=== PATIENT | female | born 1945 | race Hispanic/Latino ===

== ENCOUNTER → 2019-06-09 | Outpatient (CLI) | payer OTHER ==
[~2019-06-09] MED LIST: AEC81 PO; AMLO5TAB4 PO; CALC-1009 PO; CARV6.2579 PO; CLOP75TA14 PO; EZET10TA13 PO; FURO40TA7 PO; GLIM2TAB3 PO; INSU100V12 SQ; IRON1CAP PO; ISOS60TA4 PO; LISI-613 PO; MULT-1192 PO; Nitroglycerin SL; ROSU10TA22 PO; TRAM50TA4 PO; UBID200C18 PO
== END | disposition home or self-care (01) ==
LOC: RAH 10:04
PROVIDERS: ATTEND Internal Medicine
DX: Z12.31 Encounter for screening mammogram for malignant neoplasm of breast (principal)
CPT/HCPCS: 77067

== ENCOUNTER 2020-12-26 22:27 | Emergency (ER) | payer MEDICARE ==
[~2020-12-26 22:27] MED LIST changes: -GLIM2TAB3 PO; +GLIM2TAB30 PO; -ISOS60TA4 PO; +ISOS60TA77 PO; -LISI-613 PO; +LISI20TA24 PO
[2020-12-26] MEDS ORDERED: ASPIRIN 325 MG TABLET ONE (22:46)
[2020-12-26 22:57] LABS: APPEARANCE,URINE Cloudy (CLEAR); BILIRUBIN,URINE Negative (NEGATIVE); COLOR,URINE Yellow (YELLOW); GLUCOSE, URINE (UA) TRACE mg/dL (NEGATIVE); KETONES,URINE Negative (NEGATIVE); LEUKOCYTE ESTERASE ,URINE Trace (NEGATIVE); NITRATE,URINE Negative (NEGATIVE); OCCULT BLOOD,URINE Trace (NEGATIVE); PH,URINE 5.5 (5.0-8.0); PROTEIN,URINE 300 mg/dL (NEGATIVE); UROBILINOGEN,URINE 0.2 mg/dL (0.2-1.0)
[2020-12-26 23:03] LABS: BASOPHILS % (AUTO) 0.5 % (0.0-5.0); EOSINOPHILS % (AUTO) 4.2 % (0.0-8.0); MEAN CORPUSCULAR HEMOGLOBIN 30.3 pg (27.0-33.0); MEAN CORPUSCULAR HGB CONC 33.5 g/dL (32.0-36.0); MEAN CORPUSCULAR VOLUME 90.5 fL (79-99); MONOCYTES % (AUTO) 9.1 % (3.0-13.0); NEUTROPHILS % (AUTO) 52.9 % (40.0-77.0); PLATELET COUNT (AUTO) 289 K/uL (130-400); RED BLOOD CELL COUNT(AUTO) 4.42 MIL/uL (4.00-5.50); WHITE BLOOD COUNT (AUTO) 12.7 K/uL (4.8-10.8)
[2020-12-26 23:05] LABS: BACTERIA,URINE Rare /HPF (None Seen); SQUAMOUS EPITHELIAL CELL,UR Few /HPF (0-2)
[2020-12-26 23:12] LABS: INR 0.98 (0.85-1.15); PROTHROMBIN TIME 10.7 SEC (9.6-11.6)
[2020-12-26 23:13] LABS: CREATININE 1.9 mg/dL (0.5-1.5); PARTIAL THROMBOPLASTIN TIME 32.2 SEC (26.3-35.5)
[2020-12-26 23:18] LABS: ALBUMIN 3.1 g/dL (3.5-5.0); BILIRUBIN,TOTAL 0.3 mg/dL (0.2-1.0)
[2020-12-26] MEDS ORDERED: ONDANSETRON HCL 4 MG/2 ML VIAL ONE (23:31)
[2020-12-26 23:55] LABS: B-TYPE NATRIURETIC PEPTIDE 435 pg/mL (0-100)
[2020-12-27] MEDS ORDERED: ACETAMINOPHEN 325 MG TAB ONE (00:07)
[2020-12-27] MEDS ORDERED: NITROGLYCERIN 1GM/1 INCH PACKET TD ONE (00:07)
[2020-12-27] MEDS ORDERED: CLONIDINE HCL 0.1 MG TABLET ONE (02:38)
[2021-02-01] MEDS ORDERED: LISI2.5T2 PO (08:33)
== END 2020-12-27 05:07 | disposition home or self-care (01) ==
LOC: EDH 22:27
DX: I12.9 Hypertensive chronic kidney disease with stage 1 through stage 4 chronic kidney disease, or unspecified chronic kidney disease (principal); Z20.822 Contact with and (suspected) exposure to COVID-19; N18.4 Chronic kidney disease, stage 4 (severe)
CPT/HCPCS: 36415; 70450; 71045; 80053; 81001; 82550; 83690; 83880; 84145; 84484 ×2; 85025; 85610; 85730; 87426; 93005 ×2; 96374; 99285; J2405; U0003

== ENCOUNTER → 2020-12-27 | Outpatient (CLI) | payer MEDICARE | END | disposition home or self-care (01) | LOC: RAH 09:57 | PROVIDERS: ATTEND Internal Medicine | DX: I70.1 Atherosclerosis of renal artery (principal); N18.4 Chronic kidney disease, stage 4 (severe); R80.9 Proteinuria, unspecified | CPT/HCPCS: 76770; 93975 ==

== ENCOUNTER 2021-02-01 01:22 | Inpatient (IN) | payer MEDICARE ==
[2021-02-01] VITALS (20 sets, daily range): BP systolic 98–220; BP diastolic 30–86
[~2021-02-01] VITALS: Ht 162.6 cm; Wt 86.8 kg
[2021-02-01] MEDS ORDERED: FENTANYL 2500MCG+NS 250ML 250 ML IV ONE (01:37)
[2021-02-01 01:45] LABS: BASOPHILS % (AUTO) 0.5 % (0.0-5.0); EOSINOPHILS % (AUTO) 2.7 % (0.0-8.0); HEMATOCRIT 35.1 % (36-48); LYMPHOCYTES % (AUTO) 40.1 % (21.0-51.0); MEAN CORPUSCULAR HEMOGLOBIN 29.3 pg (27.0-33.0); MEAN CORPUSCULAR HGB CONC 31.1 g/dL (32.0-36.0); MEAN CORPUSCULAR VOLUME 94.4 fL (79-99); NEUTROPHILS % (AUTO) 47.8 % (40.0-77.0); PLATELET COUNT (AUTO) 329 K/uL (130-400); RED BLOOD CELL COUNT(AUTO) 3.72 MIL/uL (4.00-5.50); RED CELL DISTRIBUTION WIDTH 13.5 % (11.0-15.5); WHITE BLOOD COUNT (AUTO) 18.7 K/uL (4.8-10.8)
[2021-02-01] MEDS ORDERED: MIDAZOLAM HCL 1 MG/ML 2ML VIAL ONE (01:49)
[2021-02-01 01:54] LABS: ABG BASE EXCESS -11.3 mmol/L (-2.0-3.0); ABG HCO3 16.1 mmol/L (21.0-28.0); ABG PCO2 42 mmHg (32-45)
[2021-02-01 02:03] LABS: APPEARANCE,URINE Turbid (CLEAR); BILIRUBIN,URINE Negative (NEGATIVE); COLOR,URINE Yellow (YELLOW); GLUCOSE, URINE (UA) TRACE mg/dL (NEGATIVE); KETONES,URINE Negative (NEGATIVE); LEUKOCYTE ESTERASE ,URINE Trace (NEGATIVE); NITRATE,URINE Negative (NEGATIVE); OCCULT BLOOD,URINE Large (NEGATIVE); PH,URINE 5.5 (5.0-8.0); PROTEIN,URINE >=1000 mg/dL (NEGATIVE); UROBILINOGEN,URINE 0.2 mg/dL (0.2-1.0)
[2021-02-01 02:11] LABS: CREATININE 3.2 mg/dL (0.5-1.5); POTASSIUM 3.3 mmol/L (3.5-5.1)
[2021-02-01 02:11] LABS: AMPHET/METH SCREEN,URINE NEGATIVE (NEGATIVE); BARBITURATE SCREEN, URINE NEGATIVE (NEGATIVE); BENZODIAZEPINES SCREEN,URINE NEGATIVE (NEGATIVE); CANNABINOID SCREEN,URINE NEGATIVE (NEGATIVE); COCAINE SCREEN,URINE NEGATIVE (NEGATIVE); OPIATE SCREEN,URINE NEGATIVE (NEGATIVE); PHENCYCLIDINE SCREEN,URINE NEGATIVE (NEGATIVE)
[2021-02-01 02:13] LABS: AMORPHOUS SEDIMENT,UR Moderate /LPF (None Seen); BACTERIA,URINE Rare /HPF (None Seen); SQUAMOUS EPITHELIAL CELL,UR Rare /HPF (0-2)
[2021-02-01 02:17] LABS: ALBUMIN 2.5 g/dL (3.5-5.0); BILIRUBIN,TOTAL 0.2 mg/dL (0.2-1.0); TOTAL PROTEIN, SERUM 7.1 g/dL (6.0-8.3)
[2021-02-01 02:21] LABS: MAGNESIUM 2.5 mg/dL (1.80-2.40)
[2021-02-01 02:35] LABS: INR 1.37 (0.85-1.15); PARTIAL THROMBOPLASTIN TIME 26.8 SEC (26.3-35.5); PROTHROMBIN TIME 13.9 SEC (9.6-11.6)
[2021-02-01] MEDS ORDERED: NOREPINEPHRIN 4MG/NS 250ML 250 ML IV ONE (02:42)
[2021-02-01] MEDS ORDERED: ZOSYN 3.375GM+NS 50ML 50 ML IV ONE (02:48)
[2021-02-01] MEDS ORDERED: NOREPINEPHRIN 4MG/NS 250ML 250 ML IV SCH (03:45)
[2021-02-01] MEDS ORDERED: FENTANYL CITRATE PF 0.05 MG/ML 1,000 MCG in 0.9%NACL 100ML 100 ML IVPB SCH (03:45)
[2021-02-01] MEDS ORDERED: MIDAZOLAM 100MG-0.9% NS 100ML 100ML BAG IV ONE (03:45)
[2021-02-01] MEDS ORDERED: VANCOMYCIN 1G/250ML KIT 250 ML IV SCH ×2 (03:45→08:15)
[2021-02-01] MEDS ORDERED: MIDAZOLAM HCL 100 MG in 0.9%NACL 50ML 100 ML IV SCH (04:30)
[2021-02-01] MEDS ORDERED: FUROSEMIDE 20MG VIAL ONE (05:03)
[2021-02-01] MEDS: ZOSYN 3.375GM+NS 50ML 50 ML IV SCH ×2 (05:09→17:43)
[2021-02-01] MEDS ORDERED: FUROSEMIDE 20MG VIAL IV SCH (06:00)
[2021-02-01 06:09] LABS: TROPONIN I 0.91 ng/mL (0.00-0.06)
[2021-02-01] MEDS: INSULIN HUMULIN R 100 UNIT/ML 3ML SQ SCH ×4 (06:20→21:00)
[2021-02-01] MEDS: ALBUTEROL 0.083% 2.5 MG/3 ML INH IH SCH ×2 (06:35→12:00)
[2021-02-01] MEDS: IPRATROPIUM 0.5 MG/2.5 ML INH IH SCH ×3 (06:35→18:00)
[2021-02-01] MEDS ORDERED: ASPIRIN 325MG EC TAB PO SCH (06:36)
[2021-02-01] MEDS ORDERED: CLOPIDOGREL 75MG TAB ONE (06:43)
[2021-02-01] MEDS ORDERED: ASPIRIN 325 MG TABLET ONE (06:43)
[2021-02-01] MEDS: CLOPIDOGREL 75MG TAB PO SCH ×2 (07:00→09:00)
[2021-02-01] MEDS: ASPIRIN 81MG CHEW TAB PO SCH (07:02)
[2021-02-01] MEDS ORDERED: LEVOTHYROXINE 25 MCG TABLET PO SCH (07:35)
[2021-02-01] MEDS ORDERED: LORAZEPAM 2 MG/ML 1 ML VIAL ONE ×2 (07:37→21:01)
[2021-02-01] MEDS ORDERED: PROPOFOL 1000 MG/100 ML 100 ML IV ONE (07:38)
[2021-02-01] MEDS ORDERED: LORAZEPAM 2 MG/ML 1 ML VIAL IVP PRN (08:00)
[2021-02-01] MEDS ORDERED: PROPOFOL 1000 MG/100 ML IV PRN (08:00)
[2021-02-01 08:22] LABS: TROPONIN I 1.53 ng/mL (0.00-0.06)
[2021-02-01] MEDS ORDERED: ISOS30TA92 PO (08:31)
[2021-02-01] MEDS ORDERED: AMLO-258 PO (08:31)
[2021-02-01] MEDS ORDERED: LEVO25CA4 PO (08:33)
[2021-02-01] MEDS ORDERED: LISI2.5T13 PO (08:33)
[2021-02-01] MEDS ORDERED: ROSU5TAB12 PO (08:34)
[2021-02-01] MEDS ORDERED: INSU200I4 SQ (08:35)
[2021-02-01] MEDS ORDERED: ENOXAPARIN SODIUM 80 MG/0.8 ML SQ SCH (09:00)
[2021-02-01] MEDS ORDERED: HEPARIN 5,000 UNIT VIAL SQ PRN (09:45)
[2021-02-01] MEDS ORDERED: DEXTROSE 50%-WATER 50 ML DISP.SYRIN IV PRN (09:45)
[2021-02-01] MEDS ORDERED: GLUCAGON 1MG KIT 1 MG ML IM PRN (09:45)
[2021-02-01 09:59] LABS: ABG HCO3 21.9 mmol/L (21.0-28.0); ABG OXYGEN SATURATION 99.3 % (95.0-99.0); ABG PCO2 32 mmHg (32-45)
[2021-02-01] MEDS: FAMOTIDINE 20MG VIAL IV SCH (10:09)
[2021-02-01] MEDS: SOLU-MEDROL 125MG VIAL IVP SCH ×2 (10:09→21:23)
[2021-02-01 10:41] LABS: BASOPHILS % (AUTO) 0.2 % (0.0-5.0); EOSINOPHILS % (AUTO) 0.2 % (0.0-8.0); HEMATOCRIT 33.1 % (36-48); LYMPHOCYTES % (AUTO) 6.5 % (21.0-51.0); MEAN CORPUSCULAR HGB CONC 32.6 g/dL (32.0-36.0); MONOCYTES % (AUTO) 4.8 % (3.0-13.0); NEUTROPHILS % (AUTO) 87.8 % (40.0-77.0); PLATELET COUNT (AUTO) 307 K/uL (130-400); RED BLOOD CELL COUNT(AUTO) 3.72 MIL/uL (4.00-5.50); RED CELL DISTRIBUTION WIDTH 13.3 % (11.0-15.5); WHITE BLOOD COUNT (AUTO) 21.7 K/uL (4.8-10.8)
[2021-02-01] MEDS ORDERED: DOPAMINE HCL 400 MG/D5%-WATER 250 ML IV PRN (10:45)
[2021-02-01] MEDS ORDERED: ASPIRIN 81 MG EC TAB PO SCH (11:15)
[2021-02-01] MEDS ORDERED: INSULIN HUMULIN R 100 UNIT/ML 3ML SQ SCH (11:30)
[2021-02-01] MEDS ORDERED: HEPARIN 10,000 UNIT VIAL IJ SCH (11:45)
[2021-02-01] MEDS: HEPARIN 25,000 UNITS/250ML D5W 250 ML IV SCH (11:45)
[2021-02-01] MEDS ORDERED: POTASSIUM CHLORIDE 20MEQ/100ML 100 ML IV ONE (11:52)
[2021-02-01] MEDS ORDERED: POTASSIUM CHLORIDE 20MEQ/100ML 100 ML IV PRN (12:30)
[2021-02-01] MEDS ORDERED: PHARMACY COMMUNICATION MISC SCH (12:30)
[2021-02-01] MEDS ORDERED: EPINEPHRINE 1MG SYG 10ML IVP ONE (13:00)
[2021-02-01] MEDS ORDERED: SODIUM BICARB 8.4% 50ML SYRINGE IVP ONE (13:00)
[2021-02-01] MEDS ORDERED: VANCOMYCIN 500MG+NS 100ML 100 ML IV ONE (13:30)
[2021-02-01] MEDS: PHARMACY COMMUNICATION MISC SCH ×12 (13:37→23:43)
[2021-02-01] MEDS: PROPOFOL 1000 MG/100 ML 100 ML IV PRN ×2 (15:39→20:33)
[2021-02-01] MEDS: CHLORHEXIDINE GLUCONATE 473 ML MOUTHWASH MM SCH ×2 (17:28→20:09)
[2021-02-01] MEDS: LEVETIRACETAM 500 MG in 0.9%NACL 100ML 100 ML IV SCH (20:09)
[2021-02-01] MEDS: ARTIFICIAL TEARS 3.5 GM OINTMENT OS SCH (20:10)
[2021-02-01] MEDS ORDERED: ATORVASTATIN 10 MG TABLET PO SCH (21:00)
[2021-02-01] MEDS ORDERED: LORAZEPAM 2 MG/ML 1 ML VIAL IM PRN ×2 (21:00→21:15)
[2021-02-01] MEDS ORDERED: ATORVASTATIN 20 MG TABLET PO SCH (21:00)
[2021-02-02] VITALS (14 sets, daily range): BP systolic 0–144; BP diastolic 0–98
[2021-02-02] MEDS: PHARMACY COMMUNICATION MISC SCH ×7 (01:00→06:08)
[2021-02-02] MEDS: PROPOFOL 1000 MG/100 ML 100 ML IV PRN ×2 (01:17→06:00)
[2021-02-02 04:31] LABS: BASOPHILS % (AUTO) 0.1 % (0.0-5.0); LYMPHOCYTES % (AUTO) 8.2 % (21.0-51.0); MEAN CORPUSCULAR HEMOGLOBIN 29.6 pg (27.0-33.0); MEAN CORPUSCULAR HGB CONC 33.9 g/dL (32.0-36.0); MEAN CORPUSCULAR VOLUME 87.3 fL (79-99); MONOCYTES % (AUTO) 2.2 % (3.0-13.0); PLATELET COUNT (AUTO) 282 K/uL (130-400); RED BLOOD CELL COUNT(AUTO) 3.55 MIL/uL (4.00-5.50); RED CELL DISTRIBUTION WIDTH 13.2 % (11.0-15.5)
[2021-02-02 04:36] LABS: CREATININE 2.8 mg/dL (0.5-1.5); POTASSIUM 3.2 mmol/L (3.5-5.1)
[2021-02-02 04:51] LABS: ABG BASE EXCESS -4.4 mmol/L (-2.0-3.0); ABG HCO3 18.2 mmol/L (21.0-28.0); ABG OXYGEN SATURATION 98.7 % (95.0-99.0); ABG PCO2 28 mmHg (32-45)
[2021-02-02] MEDS: ZOSYN 3.375GM+NS 50ML 50 ML IV SCH (05:01)
[2021-02-02] MEDS: POTASSIUM CHLORIDE 10% ELIXIR 20 MEQ/15 ML UDCUP PO PRN ×3 (05:58→11:57)
[2021-02-02] MEDS: INSULIN HUMULIN R 100 UNIT/ML 3ML SQ SCH ×2 (06:15→11:30)
[2021-02-02] MEDS ORDERED: LEVOTHYROXINE 25 MCG TABLET PO SCH (06:30)
[2021-02-02] MEDS: ALBUTEROL 0.083% 2.5 MG/3 ML INH IH SCH ×3 (06:32→11:47)
[2021-02-02] MEDS: ARTIFICIAL TEARS 3.5 GM OINTMENT OS SCH (07:40)
[2021-02-02] MEDS: CHLORHEXIDINE GLUCONATE 473 ML MOUTHWASH MM SCH ×2 (07:40→11:27)
[2021-02-02] MEDS: IPRATROPIUM 0.5 MG/2.5 ML INH IH SCH ×2 (08:09→11:47)
[2021-02-02] MEDS: SOLU-MEDROL 125MG VIAL IVP SCH (08:34)
[2021-02-02] MEDS: CLOPIDOGREL 75MG TAB PO SCH (08:34)
[2021-02-02] MEDS: FAMOTIDINE 20MG VIAL IV SCH (08:34)
[2021-02-02] MEDS: ASPIRIN 81MG CHEW TAB PO SCH (08:35)
[2021-02-02] MEDS: HEPARIN 25,000 UNITS/250ML D5W 250 ML IV SCH (08:45)
[2021-02-02] MEDS: LEVETIRACETAM 500 MG in 0.9%NACL 100ML 100 ML IV SCH (09:37)
[2021-02-02] MEDS ORDERED: MORPHINE 2 MG SYG IVP PRN (11:12)
[2021-02-02] MEDS ORDERED: GLYCOPYRROLATE 1 MG/5 ML SYRINGE IV SCH (11:14)
[2021-02-02] MEDS ORDERED: SODIUM BICARBONATE 650 MG TAB PO SCH (14:00)
== END 2021-02-02 13:01 | disposition expired | DRG 208 ==
LOC: EDH 01:22 → EDHIP 03:03 → 2CH 04:08 → 2BH 09:43
PROVIDERS: ADMIT Internal Medicine; ATTEND Internal Medicine
PROC: 5A1945Z Respiratory Ventilation, 24-96 Consecutive Hours (ICD-10-PCS; principal; 2021-02-01)
PROC: 0BH17EZ Insertion of Endotracheal Airway into Trachea, Via Natural or Artificial Opening (ICD-10-PCS; 2021-02-01)
PROC: 5A12012 Performance of Cardiac Output, Single, Manual (ICD-10-PCS; 2021-02-01)
PROC: 05HY33Z Insertion of Infusion Device into Upper Vein, Percutaneous Approach (ICD-10-PCS; 2021-02-01)
DX: J96.00 Acute respiratory failure, unspecified whether with hypoxia or hypercapnia (principal); I21.4 Non-ST elevation (NSTEMI) myocardial infarction; I50.30 Unspecified diastolic (congestive) heart failure; N18.4 Chronic kidney disease, stage 4 (severe); N17.9 Acute kidney failure, unspecified; E87.2 Acidosis; G93.1 Anoxic brain damage, not elsewhere classified; I13.0 Hypertensive heart and chronic kidney disease with heart failure and stage 1 through stage 4 chronic kidney disease, or unspecified chronic kidney disease; Z99.11 Dependence on respirator [ventilator] status; I46.9 Cardiac arrest, cause unspecified; E11.22 Type 2 diabetes mellitus with diabetic chronic kidney disease; E66.9 Obesity, unspecified; D63.8 Anemia in other chronic diseases classified elsewhere; D72.829 Elevated white blood cell count, unspecified; E03.9 Hypothyroidism, unspecified; E11.42 Type 2 diabetes mellitus with diabetic polyneuropathy; E11.65 Type 2 diabetes mellitus with hyperglycemia; E78.2 Mixed hyperlipidemia; G25.3 Myoclonus; I25.10 Atherosclerotic heart disease of native coronary artery without angina pectoris; I25.5 Ischemic cardiomyopathy; I50.9 Heart failure, unspecified; I70.0 Atherosclerosis of aorta; I70.1 Atherosclerosis of renal artery; Z51.5 Encounter for palliative care; Z66 Do not resuscitate; F41.9 Anxiety disorder, unspecified; Z79.02 Long term (current) use of antithrombotics/antiplatelets; Z68.33 Body mass index [BMI] 33.0-33.9, adult; I25.2 Old myocardial infarction; Z79.4 Long term (current) use of insulin; Z79.82 Long term (current) use of aspirin; Z82.49 Family history of ischemic heart disease and other diseases of the circulatory system; Z83.3 Family history of diabetes mellitus; Z90.49 Acquired absence of other specified parts of digestive tract; Z98.51 Tubal ligation status; Z20.822 Contact with and (suspected) exposure to COVID-19
CPT/HCPCS: 31500; 36415; 36600; 70450; 71045; 80048; 80053; 80202; 80305; 81001; 82435; 82550; 82803; 82947; 82948; 83605; 83735; 83874; 83880; 84100; 84132; 84145; 84295; 84484; 85018; 85025; 85378; 85610; 85730; 87040; 87088; 87426; 92950; 93005; 94002; 94003; 94640; 94664; C1751; C1894; G0378; J0171; J1644; J1815; J1940; J1953; J2060; J2250; J2543; J2704; J2930; J3010; J3370; J3480; J3490; U0003